=== PATIENT | male | born 1980 | race Caucasian/White ===

== ENCOUNTER 2018-12-09 12:21 | Emergency (ER) | payer OTHER ==
[~2018-12-09] VITALS: Ht 188 cm; Wt 108.9 kg
[2018-12-09 12:37] VITALS: BP 127/79
--- NOTE | 2018-12-09 12:46 | NUR ---
TO ED 11 WITH STEADY GAIT.
[2018-12-09] MEDS ORDERED: KETOROLAC 60 MG/2 ML VIAL IM ONE (12:50)
--- NOTE | 2018-12-09 13:01 | NUR ---
c/o right elbow/bicep pain s/p moving furniture yesterday---no obvious deformity or discoloration noted--
[2018-12-09] MEDS ORDERED: DEXAMETHASONE 10 MG/ML VIAL IM ONE (14:25)
--- NOTE | 2018-12-09 14:38 | NUR ---
EMIL WRAP AND SLING APPLIED BY CALOS CULLEN. PT TOLERATED WELL.
[2018-12-09 14:42] VITALS: BP 124/81
--- NOTE | 2018-12-09 14:43 | NUR ---
Patient discharged with v/s stable. Written and verbal after care instructions given and explained. Patient alert, oriented and verbalized understanding of instructions. Ambulatory with steady gait. All questions addressed prior to discharge. ID band removed. Patient advised to follow up with PMD. Rx of MOTRIN, TYLENOL, PREDNISONE given. Patient educated on indication of medication including possible reaction and side effects. Opportunity to ask questions provided and answered.
== END 2018-12-09 14:43 | disposition home or self-care (01) ==
LOC: MED 12:21
DX: M77.11 Lateral epicondylitis, right elbow (principal); F32.9 Major depressive disorder, single episode, unspecified; F17.210 Nicotine dependence, cigarettes, uncomplicated
CPT/HCPCS: 96372; 99283; J1100; J1885

== ENCOUNTER 2018-12-16 09:59 | Emergency (ER) | payer OTHER ==
[~2018-12-16] VITALS: Ht 188 cm; Wt 111.1 kg
[2018-12-16 10:09] VITALS: BP 126/91
[2018-12-16 11:04] VITALS: BP 126/91
== END 2018-12-16 15:49 | disposition home or self-care (01) ==
LOC: MED 09:59
DX: F41.9 Anxiety disorder, unspecified (principal); R42 Dizziness and giddiness; F17.200 Nicotine dependence, unspecified, uncomplicated; Z71.6 Tobacco abuse counseling
CPT/HCPCS: 99284

== ENCOUNTER 2018-12-25 10:00 | Emergency (ER) | payer OTHER ==
[~2018-12-25] VITALS: Ht 188 cm; Wt 111.1 kg
[2018-12-25 10:07] VITALS: BP 140/100
--- NOTE | 2018-12-25 10:30 | NUR ---
Dr. Valentin evaluating patient at bedside.
--- NOTE | 2018-12-25 10:30 | NUR ---
C/O LEFT EYE VISION CHANGE SINCE YESTERDAY.STATED COULD NOT SEE PART OF THE VISION, TOTAL BLIND AT NIGHT. DENIES PAIN, DENIES INJURY.PT STATED HE HAD HIGH BLOOD PRESSURE BUT DID NOT TAKE MEDICATION. SKIN IS PINK/WARM/DRY; AAOX4 WITH EVEN AND STEADY GAIT; LUNGS CLEAR BL; HR EVEN AND REGULAR; PT DENIES ANY FEVER, CP, SOB, OR COUGH AT THIS TIME; PATIENT POSITIONED FOR COMFORT; HOB ELEVATED; BEDRAILS UP X2; BED DOWN. ER MD MADE AWARE OF PT STATUS.
[2018-12-25] MEDS ORDERED: cloNIDine 0.1 MG TAB PO ONE (10:35)
--- NOTE | 2018-12-25 10:48 | NUR ---
PT LEFT FOR CT.
[2018-12-25] MEDS ORDERED: TETRACAINE HCL/PF 0.5% OPTH 4 ML BTL OP ONE (11:40)
[2018-12-25 12:01] LABS: BASOPHILS # (AUTO) 0.1 K/uL (0.00-0.22); BASOPHILS % (AUTO) 0.8 % (0.0-2.0); EOSINOPHILS # (AUTO) 0.2 K/uL (0-0.4); EOSINOPHILS % (AUTO) 2.1 % (0.0-4.0); HEMATOCRIT 39.6 % (36-52); HEMOGLOBIN 13.1 g/dL (12.0-18.0); LYMPHOCYTES # (AUTO) 1.4 K/uL (2.0-11.5); LYMPHOCYTES % (AUTO) 17.7 % (20.5-51.1); MEAN CORPUSCULAR HEMOGLOBIN 29 pg (27-31); MEAN CORPUSCULAR HGB CONC 33 g/dL (33-37); MEAN CORPUSCULAR VOLUME 88.1 fL (80-94); MONOCYTES # (AUTO) 0.6 K/uL (0.8-1.0); MONOCYTES % (AUTO) 8.3 % (1.7-9.3); NEUTROPHILS # (AUTO) 5.4 K/uL (1.8-7.7); NEUTROPHILS % (AUTO) 71.1 % (42.2-75.2); PLATELET COUNT (AUTO) 515 K/uL (140-450); RED BLOOD CELL COUNT(AUTO) 4.49 MIL/uL (4.20-6.10); RED CELL DISTRIBUTION WIDTH 13.2 % (11.6-13.7); WHITE BLOOD COUNT (AUTO) 7.6 K/uL (4.8-10.8)
[2018-12-25 12:27] LABS: POTASSIUM 3.1 mmol/L (3.5-5.1)
[2018-12-25 12:28] LABS: ANION GAP 14.5 (8-16); CARBON DIOXIDE 26.6 mmol/L (21-32)
[2018-12-25 12:29] LABS: ALBUMIN 3.1 g/dL (3.4-5.0); TOTAL BILIRUBIN 0.2 mg/dL (0.0-1.0)
[2018-12-25] MEDS ORDERED: POTASSIUM CHLORIDE 10 MEQ TABER PO ONE (12:40)
[2018-12-25 13:41] VITALS: BP 136/88
--- NOTE | 2018-12-25 14:26 | NUR ---
[facility] at bedside for transfer.
--- NOTE | 2018-12-25 14:32 | NUR ---
REPORT GIVEN TO JENNA ( ER CHARGE NURSE) [phone]
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
== END 2018-12-25 14:33 | disposition short-term general hospital (02) ==
LOC: MED 10:00
DX: H54.62 Unqualified visual loss, left eye, normal vision right eye (principal); I10 Essential (primary) hypertension; E87.6 Hypokalemia; F17.210 Nicotine dependence, cigarettes, uncomplicated; Z71.6 Tobacco abuse counseling
CPT/HCPCS: 36415; 70450; 80053; 85025; 99285

== ENCOUNTER 2019-12-08 11:07 | Emergency (ER) | payer OTHER ==
[~2019-12-08] VITALS: Ht 185.4 cm; Wt 112.5 kg
[2019-12-08 11:11] VITALS: BP 147/96
--- NOTE | 2019-12-08 11:15 | NUR ---
PT AMBULATED TO ER BED 03
[2019-12-08] MEDS ORDERED: LIDOCAINE 2% 1000 MG/50 ML VIAL INJ ONE (11:35)
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
--- NOTE | 2019-12-08 11:42 | NUR ---
I&D SET UP AT BED SIDE, JUAN CARLOS NOTIFIED
--- NOTE | 2019-12-08 11:50 | NUR ---
ERMD AT BEDSIDE
[2019-12-08 12:21] VITALS: BP 147/96
--- NOTE | 2019-12-08 12:21 | NUR ---
Patient discharged with v/s stable. Written and verbal after care instructions given and explained. Patient alert, oriented and verbalized understanding of instructions. Ambulatory with steady gait. All questions addressed prior to discharge. ID band removed. Patient advised to follow up with PMD. Rx of Keflex 500mg, Bactrim DS, and Motrin 800mg given. Patient educated on indication of medication including possible reaction and side effects. Patient instructed to return to ED for wound check in 2 days. Opportunity to ask questions provided and answered.
== END 2019-12-08 12:21 | disposition home or self-care (01) ==
LOC: MED 11:07
DX: L02.413 Cutaneous abscess of right upper limb (principal); R03.0 Elevated blood-pressure reading, without diagnosis of hypertension; F17.200 Nicotine dependence, unspecified, uncomplicated; Z87.442 Personal history of urinary calculi; Z71.6 Tobacco abuse counseling
CPT/HCPCS: 10060; 99283; J2001

== ENCOUNTER 2019-12-10 09:34 | Emergency (ER) | payer OTHER ==
[~2019-12-10] VITALS: Ht 188 cm; Wt 113.4 kg
[2019-12-10 09:38] VITALS: BP 140/100
--- NOTE | 2019-12-10 09:55 | NUR ---
PT PRESENTS FOR RECHECK TO R [facility]EARM POST I & D FROM 12/08/19 HERE AT [facility]. WOUND IS WRAPPED IN GAUZE. GAUZE REMOVED, VISIBLE YELLOW/BROWN DRAINAGE NOTED TO PACKING. PT STATES HE HAS BEEN TAKING THE IBUPROFEN BUT CONTINUES TO HAVE PAIN 11/26 AT SITE. PT ALSO REPORTS THAT HE IS TAKING THE PRESCRIBED ANTIBIOTICS KEFLEX AND BACTRIM. PT ALERT AND AWAKE, AMBULATORY. HX: ANXIETY RX: XANAX AND BUSPIRONE
[2019-12-10] MEDS: HYDROcodone/APAP 5/325 MG 1 TAB TAB PO ONE (10:08)
--- NOTE | 2019-12-10 10:08 | NUR ---
norco po administered
--- NOTE | 2019-12-10 10:08 | NUR ---
after ermd removed packing, site appears bloody but no discharge present
--- NOTE | 2019-12-10 10:14 | NUR ---
Dressed PT's wound on right arm forearm using a non adherent dressing and roll of gauze.
--- NOTE | 2019-12-10 10:23 | NUR ---
NADR, PAIN 06/26
[2019-12-10 10:24] VITALS: BP 153/98
--- NOTE | 2019-12-10 10:24 | NUR ---
Patient discharged with v/s stable. Written and verbal after care instructions given and explained. Patient alert, oriented and verbalized understanding of instructions. Ambulatory with steady gait. All questions addressed prior to discharge. ID band removed. Patient advised to follow up with PMD. Rx of NORCO given. Patient educated on indication of medication including possible reaction and side effects. Opportunity to ask questions provided and answered. ISNTRUCTED PT TO NOT DRIVE AFTERT AKING NORCO IT MAY CAUSE DROWSINESS
== END 2019-12-10 10:24 | disposition home or self-care (01) ==
LOC: MED 09:34
DX: S41.101D Unspecified open wound of right upper arm, subsequent encounter (principal); L02.413 Cutaneous abscess of right upper limb; Z87.442 Personal history of urinary calculi; X58.XXXD Exposure to other specified factors, subsequent encounter
CPT/HCPCS: 99283